=== PATIENT | female | born 1970 | race Caucasian/White ===

== ENCOUNTER 2016-11-01 15:21 | Emergency (ER) | payer OTHER ==
[2016-11-01 15:26] VITALS: BP 148/100; PULSE 56; TEMP 98.5; BMI 39.8
--- NOTE | 2016-11-07 18:19 | EKG ---
Test Reason : Blood Pressure : / mmHG Vent. Rate : 040 BPM Atrial Rate : 040 BPM P-R Int : 140 ms QRS Dur : 082 ms QT Int : 486 ms P-R-T Axes : 033 050 006 degrees QTc Int : 396 ms MARKED SINUS BRADYCARDIA CANNOT RULE OUT ANTERIOR INFARCT , AGE UNDETERMINED ABNORMAL ECG WHEN COMPARED WITH ECG OF 22-NOV-2015 07:39, CORRELATE CLINICALLY AND REPEAT INDICATED Confirmed by AFSHIN GRULLON MD ([id number]) on 11/07/2016 6:19:40 PM Referred By: Confirmed By:AFSHIN GRULLON MD
== END 2016-11-01 20:47 | disposition left against medical advice (07) ==
LOC: JER 15:21
DX: Z53.21 Procedure and treatment not carried out due to patient leaving prior to being seen by health care provider (principal)
CPT/HCPCS: 93005; 93010; 99281-25

== ENCOUNTER 2017-03-20 07:02 | Day surgery (SDC) | payer OTHER ==
[2017-03-19 12:14] VITALS: BMI 38.2
[2017-03-20] MEDS ORDERED: PROPOFOL 20 ML ONE (08:32)
[2017-03-20 09:10] VITALS: TEMP 98.3
[2017-03-20 10:12] VITALS: BP 126/74; PULSE 60
== END 2017-03-20 10:05 | disposition home or self-care (01) ==
LOC: JASU-ENDO 07:02
PROVIDERS: ATTEND Surgery
PROC: 0DJ08ZZ Inspection of Upper Intestinal Tract, Via Natural or Artificial Opening Endoscopic (ICD-10-PCS; principal; 2017-03-20 08:00)
DX: R13.10 Dysphagia, unspecified (principal); K21.9 Gastro-esophageal reflux disease without esophagitis; Z98.84 Bariatric surgery status
CPT/HCPCS: 36415; 84703

== ENCOUNTER 2021-06-29 06:42 | Day surgery (SDC) | payer OTHER ==
[2021-06-29 15:21] LABS: BASO % 0.4 % (0-2.0); EOS % 2.2 % (0-4.5); HEMATOCRIT 26.5 % (32.4-45.2); LYMPH % 15.9 % (8-40); MCH 23.4 pg (25.7-33.7); MCHC 30.3 g/dl (32.0-36.0); MEAN CELL VOLUME 77.1 fl (80-96); MEAN PLT VOLUME 7.6 fl (7.5-11.1); MONO % 8.9 % (3.8-10.2); NEUT % 72.6 % (42.8-82.8); PLATELET COUNT 263 10^3/uL (134-434); RBC 3.43 M/mm3 (3.60-5.2); RDW 18.7 % (11.6-15.6); WHITE BLOOD COUNT 6.8 K/mm3 (4.0-10.0)
[2021-06-29 15:45] LABS: CALCIUM 8.6 mg/dL (8.5-10.1)
[2021-06-29 15:47] LABS: ALBUMIN 3.3 g/dl (3.4-5.0); BLOOD UREA NITROGEN 18.9 mg/dL (7-18)
[2021-06-29 15:50] LABS: CREATININE 1.2 mg/dL (0.55-1.3)
[2021-06-29 15:51] LABS: BILIRUBIN,TOTAL 0.2 mg/dL (0.2-1); TOT PROT 7.4 g/dl (6.4-8.2)
[2021-06-29] MEDS ORDERED: FERRIC CARBOXYMALTOSE 750 MG in SODIUM CHLORIDE 250 ML IVPB ONE (16:00)
[2021-06-29 18:09] VITALS: BP 147/78; PULSE 72; TEMP 98.7
== END 2021-06-29 17:05 | disposition home or self-care (01) ==
LOC: JONCNONCHE 06:42
PROVIDERS: ATTEND Internal Medicine Hematology & Oncology
PROC: 3E033GC Introduction of Other Therapeutic Substance into Peripheral Vein, Percutaneous Approach (ICD-10-PCS; principal; 2021-06-29)
DX: D50.9 Iron deficiency anemia, unspecified (principal)
CPT/HCPCS: 36415; 80053; 82728; 83036; 83540; 83550; 85025; 96365; J1439

== ENCOUNTER 2021-07-06 08:36 | Day surgery (SDC) | payer OTHER ==
[2021-07-06] MEDS ORDERED: FERRIC CARBOXYMALTOSE 750 MG in SODIUM CHLORIDE 250 ML IVPB ONE (13:00)
[2021-07-06 17:46] VITALS: BP 150/79; PULSE 68; TEMP 98.5
== END 2021-07-06 14:10 | disposition home or self-care (01) ==
LOC: JONCNONCHE 08:36
PROVIDERS: ATTEND Internal Medicine Hematology & Oncology
PROC: 3E033GC Introduction of Other Therapeutic Substance into Peripheral Vein, Percutaneous Approach (ICD-10-PCS; principal; 2021-07-06)
DX: D50.9 Iron deficiency anemia, unspecified (principal)
CPT/HCPCS: 96365; J1439

== ENCOUNTER 2021-08-06 17:14 | Observation (INO) | payer OTHER ==
[2021-08-06 19:26] LABS: HEMATOCRIT 36.6 % (32.4-45.2); HEMOGLOBIN 12.5 G/dL (10.7-15.3); MCH 30.7 pg (25.7-33.7); MEAN CELL VOLUME 90.4 fl (80-96); MEAN PLT VOLUME 8.3 fl (7.5-11.1); PLATELET COUNT 226.4 10^3/uL (134-434); RBC 4.05 10^6/uL (3.60-5.2); WHITE BLOOD COUNT 8.2 10^3/uL (4.0-10.8)
[2021-08-06 19:30] LABS: INR 0.93 (0.83-1.09); PROTHROMBIN TIME (PATIENT) 10.7 SEC (9.7-13.0)
[2021-08-06 19:45] LABS: ANISOCYTOSIS 2+
[2021-08-06 19:50] LABS: ALBUMIN 3.7 g/dl (3.4-5.0); BILIRUBIN,TOTAL 0.5 mg/dl (0.2-1); CALCIUM 8.6 mg/dl (8.5-10); CREATININE 0.8 mg/dl (0.55-1.3)
[2021-08-06] MEDS ORDERED: ENOXAPARIN NA (PORCINE) 100 MG/1 ML DISP.SYRIN SQ ONE ×2 (21:42→21:48)
[2021-08-07 00:02] VITALS: BMI 41.0
[2021-08-07] MEDS ORDERED: LEVOTHYROXINE NA 75 MCG TABLET (FP) ONE (06:05)
[2021-08-07] MEDS ORDERED: LEVOTHYROXINE NA 100 MCG TABLET (FP) ONE (06:05)
[2021-08-07] MEDS: LEVOTHYROXINE 75 MCG, LEVOTHYROXINE 100 MCG PO SCH (06:06)
[2021-08-07] MEDS ORDERED: SIMETHICONE 80 MG TAB.CHEW (FP) PO PRN (07:11)
[2021-08-07 07:53] LABS: HEMATOCRIT 33.3 % (32.4-45.2); HEMOGLOBIN 11.1 G/dL (10.7-15.3); MCH 30.9 pg (25.7-33.7); MCHC 33.5 g/dl (32.0-36.0); MEAN CELL VOLUME 92.2 fl (80-96); PLATELET COUNT 217.7 10^3/uL (134-434); RBC 3.61 10^6/uL (3.60-5.2); RDW 25.8 % (11.6-15.6); WHITE BLOOD COUNT 6.5 10^3/uL (4.0-10.8)
[2021-08-07 08:50] LABS: CALCIUM 8.7 mg/dl (8.5-10); CREATININE 0.9 mg/dl (0.55-1.3)
[2021-08-07] MEDS ORDERED: ENOXAPARIN NA (PORCINE) 30 MG/0.3 ML DISP.SYRIN SQ ONE ×2 (09:41→21:35)
[2021-08-07] MEDS ORDERED: ENOXAPARIN NA (PORCINE) 80 MG/0.8 ML DISP.SYRIN SQ ONE ×2 (09:41→21:34)
[2021-08-07] MEDS: LOSARTAN 50MG/HCTZ 12.5MG 1 TAB PO SCH (09:50)
[2021-08-07] MEDS: ENOXAPARIN 30 MG, ENOXAPARIN 80 MG SQ SCH ×2 (09:53→21:36)
[2021-08-07] MEDS: PANTOPRAZOLE 40 MG TABLET PO SCH (09:54)
[2021-08-07] MEDS ORDERED: LEVOTHYROXINE NA 75 MCG TABLET (FP) PO SCH (10:00)
[2021-08-07] MEDS ORDERED: ENOXAPARIN NA (PORCINE) 100 MG/1 ML DISP.SYRIN SQ SCH (10:00)
[2021-08-08] MEDS ORDERED: ALBUTEROL SO4 HFA INHALER IH PRN (00:06)
[2021-08-08] MEDS ORDERED: LEVOTHYROXINE NA 100 MCG TABLET (FP) ONE (05:46)
[2021-08-08] MEDS ORDERED: LEVOTHYROXINE NA 75 MCG TABLET (FP) ONE (05:47)
[2021-08-08] MEDS: LEVOTHYROXINE 75 MCG, LEVOTHYROXINE 100 MCG PO SCH (06:28)
[2021-08-08] MEDS ORDERED: ENOXAPARIN NA (PORCINE) 30 MG/0.3 ML DISP.SYRIN SQ ONE (09:10)
[2021-08-08] MEDS ORDERED: ENOXAPARIN NA (PORCINE) 80 MG/0.8 ML DISP.SYRIN SQ ONE (09:10)
[2021-08-08] MEDS: LOSARTAN 50MG/HCTZ 12.5MG 1 TAB PO SCH (09:13)
[2021-08-08] MEDS: PANTOPRAZOLE 40 MG TABLET PO SCH (09:14)
[2021-08-08] MEDS: ENOXAPARIN 30 MG, ENOXAPARIN 80 MG SQ SCH (09:14)
[2021-08-08 14:23] VITALS: BP 116/64; PULSE 64; TEMP 98.1
== END 2021-08-08 15:37 | disposition home or self-care (01) ==
LOC: FER 17:14 → FM/S 23:14
PROVIDERS: ADMIT Internal Medicine; ATTEND Nurse Practitioner Acute Care
PROC: 3E023GC Introduction of Other Therapeutic Substance into Muscle, Percutaneous Approach (ICD-10-PCS; principal; 2021-08-06)
DX: I82.432 Acute embolism and thrombosis of left popliteal vein (principal); I10 Essential (primary) hypertension; R60.0 Localized edema; E03.9 Hypothyroidism, unspecified; K21.9 Gastro-esophageal reflux disease without esophagitis; F17.210 Nicotine dependence, cigarettes, uncomplicated; S90.32XA Contusion of left foot, initial encounter; X58.XXXA Exposure to other specified factors, initial encounter; Y93.9 Activity, unspecified; D25.9 Leiomyoma of uterus, unspecified; F41.9 Anxiety disorder, unspecified; Z98.84 Bariatric surgery status; D64.9 Anemia, unspecified
CPT/HCPCS: 36415; 71045-TC-FY; 71250-TC; 80048; 80053; 84703; 85025; 85027; 85610; 93005; 93971-TC; 96372; 99285-25; C9803-CS; G0378; U0003; U0005